=== PATIENT | female | born 1970 ===

== ENCOUNTER 2024-10-27 06:51 | Day surgery (SDC) | payer BC ==
[2024-10-25 16:02] LABS: Absolute Basophils 0.1 K/uL (0-0.5); Absolute Eosinophils 0.5 K/uL (0-0.5); Absolute Lymphocytes (CBC) 3.3 K/uL (0.7-4.9); Absolute Monocytes 0.7 K/uL (0.1-1.3); Absolute Neutrophil 5.2 K/uL (1.8-8.0); Basophils % 0.6 % (0-1.3); Eosinophils % 5.3 % (0-4.4); Hematocrit 33.4 % (36.0-45.0); Hemoglobin 11.4 g/dL (12.0-15.0); Lymphocytes % 33.9 % (15.3-44.8); MCH 25.2 pg (27.0-35.0); MCHC 34.2 g/dL (32.0-36.0); MCV 73.7 fL (80-100); MPV 7.9 fL (7.6-11.3); Monocytes % 6.9 % (3.3-12.3); Neutrophils % 53.3 % (41.7-73.7); Nucleated Red Blood Cells % 0.2 % (0-0); Platelets 479 thou/uL (152-406); RBC Red Blood Cell Count 4.54 M/uL (3.86-4.86); Red Cell Distribution Width 14.1 % (12.1-15.2)
[2024-10-25 16:16] LABS: Anion Gap 8.5 mEq/L (5.0-15.0); Potassium 3.5 mEq/L (3.5-5.1)
[2024-10-27] MEDS: Ringers Lactate 1,000 ML IV ONE (07:00)
[2024-10-27 07:40] VITALS: O2SAT 98
[2024-10-27] MEDS ORDERED: LIDOCAINE 1% MPF 5 ML VIAL ONE (07:57)
[2024-10-27] MEDS ORDERED: propofoL 200 MG/20 ML VIAL IV ONE (07:57)
[2024-10-27 09:05] VITALS: TEMP 97.7
[2024-10-27 09:06] VITALS: BP 113/75
== END 2024-10-27 09:05 | disposition home or self-care (01) ==
LOC: OR 06:51
PROVIDERS: ATTEND Surgery
PROC: 0DJD8ZZ Inspection of Lower Intestinal Tract, Via Natural or Artificial Opening Endoscopic (ICD-10-PCS; principal; 2024-10-27 08:00)
DX: Z12.11 Encounter for screening for malignant neoplasm of colon (principal); K57.30 Diverticulosis of large intestine without perforation or abscess without bleeding; K64.8 Other hemorrhoids
CPT/HCPCS: 85025; 80048; 36415; 45378; J2704; J2003; J7120